=== PATIENT | male | born 1940 | race Hispanic/Latino ===

== ENCOUNTER → 2023-08-15 | Outpatient (CLI) | payer OTHER ==
[2023-08-15 16:29] LABS: INR 2.71 (0.85-1.15); PROTHROMBIN TIME 29.7 SEC (9.6-11.6)
== END | disposition home or self-care (01) ==
LOC: LAB 13:33
PROVIDERS: ATTEND Internal Medicine Cardiovascular Disease
DX: Z79.01 Long term (current) use of anticoagulants (principal)
CPT/HCPCS: 36415; 85610

== ENCOUNTER 2024-09-16 08:38 | Day surgery (SDC) | payer OTHER ==
[2024-09-16] VITALS (13 sets, daily range): BP systolic 129–146; BP diastolic 54–65; PULSE 42–55; RESP 14–18; TEMP 94.4–97.9
[~2024-09-16] VITALS: Ht 172.7 cm; Wt 88.5 kg
[~2024-09-16 08:38] MED LIST: 0.9%NACL 1000ML 1,000 ML IV ONE
[2024-09-16] MEDS ORDERED: TAMS-55 PO (11:10)
[2024-09-16] MEDS ORDERED: FAMO20TA8 PO (11:10)
[2024-09-16] MEDS ORDERED: SPIR25TA6 PO (11:10)
[2024-09-16] MEDS ORDERED: LOSA50TA64 PO (11:10)
[2024-09-16] MEDS ORDERED: IOHEXOL-350 50ML VIAL IV ONE (14:22)
[2024-09-16] MEDS ORDERED: SUCCINYLCHOLINE CHLORIDE 20 MG/ML 10 ML VIAL ONE (14:28)
[2024-09-16] MEDS ORDERED: MIDAZOLAM HCL 1 MG/ML 2ML VIAL ONE (14:29)
[2024-09-16] MEDS ORDERED: GLYCOPYRROLATE 0.2 MG/ML 5 ML VIAL ONE (14:29)
[2024-09-16] MEDS ORDERED: NEOSTIGMINE METHYLSULFATE 1MG/ML IV ONE (14:29)
[2024-09-16 15:07] LABS: CREATININE 1.3 mg/dL (0.5-1.3); GLOMERULAR FILTR. RATE CALC 55.0 mL/min (>90); GLUCOSE,RANDOM 83.0 mg/dL (70-105); SODIUM SERUM 139.0 mmol/L (136-145); UREA NITROGEN, BLOOD 23.0 mg/dL (7-18)
[2024-09-16] MEDS ORDERED: LIDOCAINE PF 100MG/5ML (2%) SYRINGE 5ML ONE (15:38)
--- NOTE | 2024-09-16 16:42 | EKG ---
[facility] Test Date: 2024-09-16 Test Time: 14:23:47 Pat Name: MARNIE LEAHY Department: [facility] Room: [facility] Gender: M [employer]ical Warehouseman: [id number] : 1940 Requested By: PERLA JULIEN Order Number: [id number] Reading MD: Betty Crowell Measurements Intervals [place] Rate: 59 P: 0 MS: 0 QRS: 5 QRSD: 89 T: 20 QT: 481 QTc: 478 Interpretive Statements Atrial fibrillation with frequent PVCs No previous ECG available for comparison Electronically Signed On 09-17-2024 14:05:36 CDT by Betty Crowell Please click the below link to view image of tracing.
--- NOTE | 2024-09-16 18:00 | NUR ---
patient discharged from facility via wheelchair by nurse and assisted into private vehicle driven by spouse
[2024-09-16] MEDS: INDOMETHACIN 100 MG SUPP.RECT RC ONE (18:14)
== END 2024-09-16 18:00 | disposition home or self-care (01) ==
LOC: ENDO 08:38 → DAH 08:38 → ENDO 18:00
PROVIDERS: ATTEND Internal Medicine Gastroenterology
DX: K80.36 Calculus of bile duct with acute and chronic cholangitis without obstruction (principal); K83.8 Other specified diseases of biliary tract; I10 Essential (primary) hypertension; E11.9 Type 2 diabetes mellitus without complications; I48.91 Unspecified atrial fibrillation; I49.3 Ventricular premature depolarization; Z90.49 Acquired absence of other specified parts of digestive tract; Z79.899 Other long term (current) drug therapy
CPT/HCPCS: 43261; 80048; 36415; 74328; 43264; 43275; 43273; 93005; J3010; J0330; J7030; J3490 ×3; J2003; J2250; J2704; J2710; J2371; Q9967; A4215 ×2; A4223; A4657 ×3; A7002; A4222; A4221; A4663; A4606; C1769; C1773